=== PATIENT | female | born 1990 | race Caucasian/White ===

== ENCOUNTER 2024-02-13 07:41 | Emergency (ER) | payer MEDICAID, SELFPAY ==
--- NOTE | 2024-02-13 08:16 | PC.NURSE ---
PT CAME TO TRIAGE DESK TO SAY SHE WAS LEAVING TO GO TO [facility] AND WALKED OUT.
--- NOTE | 2024-02-13 16:31 | PD.EDADDENDU ---
Emergency Room Addendum Addendum Narrative: PT LWBS pt was not seen by me
== END 2024-02-13 08:16 | disposition left against medical advice (07) ==
LOC: SERX 09:34
PROVIDERS: Emergency Provider Internal Medicine Critical Care Medicine
DX: Z53.21 Procedure and treatment not carried out due to patient leaving prior to being seen by health care provider (principal)

== ENCOUNTER 2024-05-06 13:58 | Observation (INO) | payer MEDICAID, SELFPAY ==
[2024-05-06] VITALS (14 sets, daily range): BP systolic 136; BP diastolic 81; PULSE 89–101; RESP 16–97; TEMP 36.4; O2SAT 95–99; BMI 41.6
--- NOTE | 2024-05-06 14:50 | XR_ITS ---
Examination: Biophysical profile, ultrasound Date and time of exam: May 06, 2024 1552 hours INDICATIONS: Decreased movement today Technique: Multiple transabdominal sonographic images of the pelvis abdomen obtained. Attention is directed to the breathing movement, gross body movement, amniotic fluid volume and tone. Findings: Amniotic fluid index 9.5 cm Total biophysical profile is 8 of 8. breathing movement is 2. Gross body movement is 2. tone is 2. Qualitative amniotic fluid volume is 2 Impression: Biophysical profile is 8 of 8.
== END 2024-05-06 16:25 | disposition home or self-care (01) ==
PROVIDERS: Admitting Provider Obstetrics & Gynecology; PCP Nurse Practitioner Family; Visit Provider Obstetrics & Gynecology
DX: O36.8130 Decreased fetal movements, third trimester, not applicable or unspecified (principal); Z3A.28 28 weeks gestation of pregnancy
CPT/HCPCS: 59025; 59899; 76819

== ENCOUNTER 2024-06-18 20:24 | Observation (INO) | payer MEDICAID, SELFPAY ==
[2024-06-18 20:35] VITALS: BP 137/78; PULSE 107
[2024-06-18 20:54] VITALS: BP 118/69; PULSE 104
== END 2024-06-18 23:15 | disposition home or self-care (01) ==
PROVIDERS: Admitting Provider Student in an Organized Health Care Education/Training Program; Visit Provider Student in an Organized Health Care Education/Training Program
DX: Z34.83 Encounter for supervision of other normal pregnancy, third trimester (principal); Z3A.34 34 weeks gestation of pregnancy
CPT/HCPCS: 59899; J7120

== ENCOUNTER 2024-07-18 23:53 | Emergency (ER) | payer MEDICAID, SELFPAY ==
[2024-07-19 00:11] VITALS: BP 176/100; PULSE 70; RESP 17; TEMP 36.7; O2SAT 97
--- NOTE | 2024-07-19 00:17 | PD.EDRME ---
Rapid Medical Screening Exam RME Arrival date/time: 07/18/24 23:53 34 year old female present to ED for c/o of lower leg edema, and abd pain I have greeted and performed a focused initial assessment of this patient. A comprehensive ED assessment and evaluation of the patient, analysis of all test results, and completion of the medical decision making process will be conducted by additional ED providers. Chief Complaint: General Adult/Misc Complain Time Seen by Provider: 07/19/24 00:07 Vital signs: Vital Signs Temperature 98.0 F 07/19/24 00:11 Pulse Rate 70 07/19/24 00:11 Respiratory Rate 17 07/19/24 00:11 Blood Pressure 176/100 H 07/19/24 00:11 Pulse Oximetry (%) 97 07/19/24 00:11 Oxygen Delivery Method Room Air 07/19/24 00:11
--- NOTE | 2024-07-19 00:18 | XR_ITS ---
Examination: Venous duplex lower extremity sonogram, bilateral. Date and time of exam: July 19, 2024 0222 hrs. Indications: Status post July 11, 2024, bilateral leg pain and swelling Technique: Multiple sonographic images of the deep venous system have been obtained. B-mode/2-D grayscale imaging of vascular structures and Doppler spectral analysis (waveforms) and color performed Both legs are examined. Findings: Deep venous systems do not demonstrate abnormal echogenicity. All visualized deep veins exhibit compressibility. All visualized deep veins exhibit augmentation. Impression: Negative for deep vein thrombosis
[2024-07-19 00:51] LABS: Basophils # (Auto) 0.1 Thou/mm3 (0.0-0.2); Basophils % (Auto) 1 % (0-2.5); Eosinophils # (Auto) 0.4 Thou/mm3 (0.0-0.5); Eosinophils % (Auto) 4 % (0-10); Hematocrit 33.4 % (36.0-46.0); Hemoglobin 10.6 g/dL (12.0-16.0); Immature Granulocytes % (Auto) 1 % (0-0); Immature Granulocytes Auto 0.13 Thou/mm3 (0.00-0.00); Lymphocytes # (Auto) 1.7 Thou/mm3 (1.0-4.8); Lymphocytes % (Auto) 18 % (10-50); Mean Corpuscular HGB Conc 31.7 g/dl (31.0-37.0); Mean Corpuscular Hemoglobin 27.7 pg (25.0-35.0); Mean Corpuscular Volume 87 fL (80-100); Monocytes # (Auto) 0.6 Thou/mm3 (0.0-0.8); Monocytes % (Auto) 6 % (0-12); Neutrophils # (Auto) 6.7 Thou/mm3 (1.8-7.7); Neutrophils % (Auto) 70 % (37-80); Nucleated Red Blood Cell % 0 /100 WBC (0); Platelet Count 364 Thou/mm3 (140-440); RDW Standard Deviation 44.8 fL (36.4-46.3); Red Blood Count 3.83 Miln/mm3 (4.00-5.20); White Blood Count 9.5 Thou/mm3 (3.6-11.0)
[2024-07-19 01:04] LABS: INR 0.9 (0.9-1.3); Prothrombin Time 10.4 Seconds (9.0-12.2)
[2024-07-19 01:14] LABS: Alanine Aminotransferase 24 U/L (10-49); Albumin, Serum 3.8 gm/dL (3.5-5.0); Albumin/Globulin Ratio 1.6 (1.2-2.2); Alkaline Phosphatase 137 U/L (46-116); Anion Gap 9 (7-16); Aspartate Amino Transferase 13 U/L (0-34); BUN/Creatinine Ratio 22 Ratio (12-20); Bilirubin,Total 0.3 mg/dL (0.3-1.2); Blood Urea Nitrogen 13 mg/dL (9-23); Calcium 9.2 mg/dL (8.3-10.6); Calcium (Corrected) 9.4 mg/dL (8.5-10.1); Carbon Dioxide 24.1 mMol/L (20.0-31.0); Chloride 112 mMol/L (98-107); Creatinine (Component) 0.6 mg/dL (0.6-1.3); Globulin 2.4 gm/dL (2.3-3.5); Glucose 107 mg/dL (74-106); Lipase 29 U/L (12-53); Osmolality,Calculated 288 (275-295); Potassium 4.2 mMol/L (3.4-5.1); Sodium 145 mMol/L (136-145); Total Protein 6.2 gm/dL (5.7-8.2); eGFR > 60 See Note
[2024-07-19 01:31] LABS: B-Type Natriuretic Peptide 177 pg/mL (0-100)
--- NOTE | 2024-07-19 03:39 | PRELIM_ITS ---
Bilateral lower extremity venous Doppler ultrasound with wave Doppler spectral analysis. July 19, 2024 at 0222 hours Clinical history: Lower leg swelling recent, c/s rule out deep vein thrombosis. Technique: Duplex scan of the bilateral lower extremity deep venous systems was performed utilizing 2D grayscale imaging, Doppler spectral analysis and color flow Doppler and with compression. Comparison: None. Findings: The public relations counselor worksheet is not available at the time of this report. Archibald scale, color flow and spectral Doppler evaluation of the lower extremity deep veins was performed. Right: The common femoral, superficial femoral and popliteal veins are patent and compressible. Normal respiratory variation and augmentation are noted. The great saphenous vein is patent at the level of the saphenofemoral junction. The posterior tibial and peroneal veins are patent and compressible. There is no evidence of occlusive or nonocclusive thrombus. Left: The common femoral, superficial femoral and popliteal veins are patent and compressible. Normal respiratory variation and augmentation are noted. The great saphenous vein is patent at the level of the saphenofemoral junction. The posterior tibial and peroneal veins are patent and compressible. There is no evidence of occlusive or nonocclusive thrombus. Impression: No sonographic evidence of deep venous thrombosis in both lower extremities. Report Electronically Signed By: Vargas Lai 07/19/2024 3:39:13 AM [EST]
[2024-07-19 04:32] VITALS: BP 169/103; PULSE 64; RESP 18; TEMP 36.6; O2SAT 98
--- NOTE | 2024-07-19 06:22 | PD.EDADULT ---
ED General RME/HPI General Chief complaint: General Adult/Misc Complain Stated complaint: S/P CSECTION 07/11, BP HIGH, FEET SWELLING Time Seen by Provider: 07/19/24 00:07 Source: patient Arrival date/time: 07/18/24 23:53 34-year-old female with a history of hypertension, type 2 diabetes presents to the emergency room with a chief complaint of bilateral lower leg edema x 2 weeks. Patient states she had a done on 07/11/2024. Mode of arrival: ambulatory Limitations: no limitations RME / HPI RME / HPI narrative: 07/18/24 23:53 34 year old female present to ED for c/o of lower leg edema, and abd pain I have greeted and performed a focused initial assessment of this patient. A comprehensive ED assessment and evaluation of the patient, analysis of all test results, and completion of the medical decision making process will be conducted by additional ED providers. Related Data Home Medications ?Medication ?Instructions ?Recorded ?Confirmed aspirin 81 mg tablet,delayed 81 mg PO QDAY 05/06/24 06/18/24 release labetalol 100 mg tablet 100 mg PO QDAY 05/06/24 06/18/24 vitamin-ferrous sulfate 1 tab PO QDAY 05/06/24 06/18/24 27 mg iron-folic acid 0.8 mg tablet metformin 1,000 mg tablet,extended mg PO 06/18/24 release 24hr (osmotic) Allergies Allergy/AdvReac Type Severity Reaction Status Date / Time amoxicillin Allergy Severe Rash Verified 06/18/24 23:29 Penicillins Allergy Severe Rash Verified 06/18/24 23:29 Review of Systems Review of Systems Systems Reviewed: All systems reviewed, normal except as documented Constitutional Constitutional: Reports system reviewed and no additional complaints, except as documented, Denies fatigue, Denies fever(s), Denies headache(s) and Denies weakness Eyes Eyes: Reports system reviewed and no additional complaints, except as documented, Denies blurry vision and Denies change in vision ENT Ears, Nose, Mouth, and Throat: Reports system reviewed and no additional complaints, except as documented, Denies otalgia, Denies headache(s), Denies nasal congestion, Denies throat swelling and Denies vertigo Cardiovascular Cardiovascular: Reports system reviewed and no additional complaints, except as documented, Denies chest pain, Denies dyspnea and Denies dyspnea on exertion Respiratory Respiratory: Reports system reviewed and no additional complaints, except as documented, Denies chest congestion, Denies cough, Denies dyspnea, Denies dyspnea on exertion and Denies wheezing Gastrointestinal Gastrointestinal: Reports system reviewed and no additional complaints, except as documented, Denies abdominal pain, Denies cramping, Denies nausea and Denies vomiting Genitourinary Genitourinary: Reports system reviewed and no additional complaints, except as documented Musculoskeletal Musculoskeletal: Reports system reviewed and no additional complaints, except as documented, Denies back pain and Reports joint swelling Integumentary/Breasts Skin/Breast: Reports system reviewed and no additional complaints, except as documented and Denies wounds Neurologic Neurologic: Reports system reviewed and no additional complaints, except as documented, Denies confusion, Denies headache(s), Denies lack of coordination, Denies vertigo and Denies weakness Psychiatric Psychiatric: Reports system reviewed and no additional complaints, except as documented, Denies anxiety, Denies confusion, Denies depression, Denies paranoia, Denies suicidal ideation and Denies tactile hallucinations Endocrine Endocrine: Reports system reviewed and no additional complaints, except as documented and Denies fatigue Hematologic/Lymphatic Hematologic/Lymphatic: Reports system reviewed and no additional complaints, except as documented and Denies lymphadenopathy Allergic/Immunologic Allergic/Immunologic: Reports system reviewed and no additional complaints, except as documented, Denies throat swelling, Denies urticaria and Denies wheezing Past Medical History Past Medical History NEUROLOGIC: Negative Neurological Disorders CARDIAC: Positive Hypertension; Negative Congestive Heart Failure RESPIRATORY: Negative Chronic Obstructive Pulmonary Disease (COPD) GASTROINTESTINAL: Positive Ulcer; Negative Gastrointestinal Disorders GENITOURINARY: Negative Genitourinary Disorders or Renal Disease REPRODUCTIVE: Negative Pelvic Inflammatory Disease MUSCULOSKELETAL: Negative Musculoskeletal Disorders ENDOCRINE: Negative Endocrine Disorders, Diabetes Mellitus Type 1 or Diabetes Mellitus Type 2 HEMATOLOGIC: Negative Blood Disorders Social History SMOKING STATUS: Never smoker SUBSTANCE USE: marijuana ED Exam General Limitations: Present no limitations General appearance: Present alert and in no apparent distress Head Head exam: Present atraumatic Eye Eye exam: Present normal appearance, PERRL and EOMI ENT ENT exam: Present normal exam, normal oropharynx and mucous membranes moist Neck Neck exam: Present normal inspection, full ROM and trachea midline Chest Chest inspection: Present normal inspection and symmetric chest wall rise Respiratory Respiratory exam: Present normal lung sounds bilaterally Cardiovascular Cardiovascular exam: Present regular rate, normal rhythm and normal heart sounds Abdominal Exam Abdominal exam: Present soft and normal bowel sounds Extremities Exam Extremities exam: Present normal inspection and full ROM Expanded Lower Extremity Exam Lower leg exam: Present full ROM and swelling; Absent tenderness or Homans' sign Ankle exam: Present full ROM and swelling; Absent tenderness Foot/toe exam: Present full ROM and swelling Gait: observed and normal Back Exam Back exam: Present normal inspection and full ROM Neurological Exam Neurological exam: Present alert, oriented X3 and CN II-XII intact Psychiatric Psychiatric exam: Present normal affect and normal mood Skin Skin exam: Present warm, dry, intact and normal color Course Quality Measures none Orders Category Date Time Status US venous doppler LE BI Stat Exams 07/19/24 00:18 Taken BNP [B-Type Natriuretic Peptide] Stat Lab 07/19/24 00:39 Completed CBC Stat Lab 07/19/24 00:39 Completed CMP [Comprehensive Metabolic Panel] Stat Lab 07/19/24 00:39 Completed INR [Prothrombin Time with INR] Stat Lab 07/19/24 00:39 Completed Lipase Stat Lab 07/19/24 00:39 Completed Vital Signs Vital signs: Vital Signs Temperature 98.0 F 07/19/24 00:11 Pulse Rate 70 07/19/24 00:11 Respiratory Rate 17 07/19/24 00:11 Blood Pressure 176/100 H 07/19/24 00:11 Pulse Oximetry (%) 97 07/19/24 00:11 Oxygen Delivery Method Room Air 07/19/24 00:11 O2 saturation 97% within normal limits MDM Patient data External records reviewed:: [facility] previous records Clinical information provided by:: patient Social determinants that could affect healthcare access:: none Patient has the following chronic illnesses:: Hypertension, type 2 diabetes How is presenting disease/condition affected by chronic disease/condition?: uneffected by Evaluation data The following diagnostics were reviewed and interpreted by me:: lab results and radiology exam(s) Lab and/or radiology exams considered but not ordered:: Labs and radiology exams considered and ordered Interpretation Summary: Ultrasound Doppler lower extremities-Findings: The floral artist worksheet is not available at the time of this report. Archibald scale, color flow and spectral Doppler evaluation of the lower extremity deep veins was performed. Right: The common femoral, superficial femoral and popliteal veins are patent and compressible. Normal respiratory variation and augmentation are noted. The great saphenous vein is patent at the level of the saphenofemoral junction. The posterior tibial and peroneal veins are patent and compressible. There is no evidence of occlusive or nonocclusive thrombus. Left: The common femoral, superficial femoral and popliteal veins are patent and compressible. Normal respiratory variation and augmentation are noted. The great saphenous vein is patent at the level of the saphenofemoral junction. The posterior tibial and peroneal veins are patent and compressible. There is no evidence of occlusive or nonocclusive thrombus. Impression: No sonographic evidence of deep venous thrombosis in both lower extremities. Medications Medications considered but not ordered:: Medication not given Medication administrations:: Medication not given Consultations Consultation(s) initiated? (list below): No Diagnosis Differential Diagnosis ED Complaint MDM: Lower extremity edema/DVT/electrolyte imbalance/chronic venous insufficienc Most likely diagnosis given after review of the tests above:: Lower extremity edema Admission Indicated Admission indicated?: not indicated Explain why admission is indicated or not indicated:: N/A Admission Request Was there a request for admission?: No Disposition Plan Disposition Plan: Discharge Discharge Attestation Discharge Attestation: The patient and all family members were given an opportunity to ask questions and understood the discharge instructions. Discharge instructions specifically effects, indications for sooner follow up or return to the emergency department, and the expected course of current diagnosis. Patient condition: Stable Medical Decision Making MDM Narrative MDM Narrative: 34-year-old female with a history of hypertension, type 2 diabetes presents to the emergency room with a chief complaint of bilateral lower leg edema x 2 weeks. Patient states she had a done on 07/11/2024. Patient is hemodynamically stable and in no apparent distress Physical examination shows clear bilateral lung sounds. Physical examination shows +2 edema to the bilateral lower extremities. Patient states edema has been on during her last 2 weeks of but states she is 1 week and the swelling has not gone away. Ultrasound of the lower extremities was completed and was negative for any DVT. CBC CMP urinalysis were all negative for any acute findings. Patient was discharged and educated to follow-up with primary care provider in the next 24 to 48 hours and return to the emergency room for any evidence of worsening signs or symptoms Differential Diagnosis Differential Diagnosis: Lower extremity edema/DVT/electrolyte imbalance/chronic venous insufficienc Lab Data 07/19/24 00:39 07/19/24 00:39 Labs: Lab Results 07/19/24 Range/Units 00:39 WBC 9.5 (3.6-11.0) Thou/mm3 RBC 3.83 L (4.00-5.20) Miln/mm3 Hgb 10.6 L (12.0-16.0) g/dL Hct 33.4 L (36.0-46.0) % MCV 87 (80-100) fL MCH 27.7 (25.0-35.0) pg MCHC 31.7 (31.0-37.0) g/dl RDW Std Deviation 44.8 (36.4-46.3) fL Plt Count 364 (140-440) Thou/mm3 Neut % (Auto) 70 (37-80) % Lymph % (Auto) 18 (10-50) % Cataño % (Auto) 6 (0-12) % Eos % (Auto) 4 (0-10) % Baso % (Auto) 1 (0-2.5) % Neut # (Auto) 6.7 (1.8-7.7) Thou/mm3 Lymph # (Auto) 1.7 (1.0-4.8) Thou/mm3 Cataño # (Auto) 0.6 (0.0-0.8) Thou/mm3 Eos # (Auto) 0.4 (0.0-0.5) Thou/mm3 Baso # (Auto) 0.1 (0.0-0.2) Thou/mm3 Immature Gran # (Auto) 0.13 H (0.00-0.00) Thou/mm3 Absolute Nucleated RBC 0.00 (0.00-0.00) Thou/mm3 Immature Gran % 1 H (0-0) % Nucleated RBC % 0 (0) /100 WBC PT 10.4 (9.0-12.2) Seconds INR 0.9 (0.9-1.3) Sodium 145 (136-145) mMol/L Potassium 4.2 (3.4-5.1) mMol/L Chloride 112 H (98-107) mMol/L Carbon Dioxide 24.1 (20.0-31.0) mMol/L Anion Gap 9 (7-16) BUN 13 (9-23) mg/dL Creatinine 0.6 (0.6-1.3) mg/dL Estim Creat Clear Calc Not Performed. eGFR > 60 (60 - ) See Note BUN/Creatinine Ratio 22 H (12-20) Ratio Glucose 107 H (74-106) mg/dL Calculated Osmolality 288 (275-295) Calcium 9.2 (8.3-10.6) mg/dL Corrected Calcium 9.4 (8.5-10.1) mg/dL Total Bilirubin 0.3 (0.3-1.2) mg/dL AST 13 (0-34) U/L ALT 24 (10-49) U/L Alkaline Phosphatase 137 H (46-116) U/L B-Natriuretic Peptide 177 H (0-100) pg/mL Total Protein 6.2 (5.7-8.2) gm/dL Albumin 3.8 (3.5-5.0) gm/dL Globulin 2.4 (2.3-3.5) gm/dL Albumin/Globulin Ratio 1.6 (1.2-2.2) Lipase 29 (12-53) U/L Discharge Plan Plan Patient Disposition: HOME (Self Care) Disposition Comment: Stable Prescriptions/Referrals Prescriptions/Med Rec: No Action 27 mg iron- 0.8 mg Tablet 1 tab PO QDAY aspirin 81 mg tablet,delayed release (DR/EC) 81 mg PO QDAY Patient Comments: take 2 tablets by mouth once daily labetalol 100 mg tablet 100 mg PO QDAY Patient Comments: take 1 tablet by mouth twice a day metformin 1,000 mg tablet extended release 24hr PO Patient Comments: take 1 tablet by mouth once daily WITH EVENING MEAL for diabetes Referrals: Nadege Rodriguez PIGMENT GRINDER [Primary Care Provider] - In 1 week Problem List Clinical Impression: Edema in preg-delivered Patient/Caregiver Discharge Instructions Education Materials: ED Leg Swelling in Both Legs Additional Instructions: Please follow-up with your PRODUCTION WOOD CRAFTSMAN in the next 24 to 48 hours. Your ultrasound of your lower extremities was negative for any blood clot. Your blood work and urinalysis was negative for any acute findings For any evidence of worsening signs or symptoms return to the emergency room immediately Print Language: [place] Verde[place] Stand Alone Forms: Colleen Award Info., Work/School Release, Patient Portal Info Letter PA/RYAN Supervising Physician AMISH/RYAN Supervising Physician: Dr. Clifton
== END 2024-07-19 06:27 | disposition home or self-care (01) ==
PROVIDERS: Physician Assistant; Emergency Provider Emergency Medicine; PCP Nurse Practitioner Family
DX: O90.89 Other complications of the puerperium, not elsewhere classified (principal); R60.0 Localized edema; O10.93 Unspecified pre-existing hypertension complicating the puerperium; O24.13 Pre-existing type 2 diabetes mellitus, in the puerperium
CPT/HCPCS: 36415; 80053; 83690; 83880; 85025; 85610; 93970; 99284

== ENCOUNTER 2024-11-29 12:10 | Emergency (ER) | payer MEDICAID, SELFPAY ==
[2024-11-29 12:22] VITALS: BP 147/79; PULSE 115; RESP 18; TEMP 37.3; O2SAT 97; BMI 42.5
--- NOTE | 2024-11-29 12:27 | XR_ITS ---
Examination: Pelvic ultrasound, transabdominal, complete Technique: Transabdominal ultrasound of the pelvis performed using grayscale imaging Date and time of exam: November 29, 2024 1249 hours INDICATIONS: Vaginal bleeding post July 11, 2024 FINDINGS: Uterus 10.8 cm endometrial stripe 0.7 cm No uterine mass or intrauterine gestation Right ovary 2.2 cm arterial flow Left ovary 3.0 cm arterial flow small follicles IMPRESSION: Negative study
--- NOTE | 2024-11-29 12:28 | PD.EDRME ---
Rapid Medical Screening Exam RME Arrival date/time: 11/29/24 12:10 34-year-old female presents to the Emergency Department today for complaint of vaginal bleeding Chief Complaint: Vaginal Bleeding Vital signs: Vital Signs Temperature 99.2 F 11/29/24 12:22 Pulse Rate 115 H 11/29/24 12:22 Respiratory Rate 18 11/29/24 12:22 Blood Pressure 147/79 H 11/29/24 12:22 Pulse Oximetry (%) 97 11/29/24 12:22 Oxygen Delivery Method Room Air 11/29/24 12:22
[2024-11-29 12:51] LABS: Basophils # (Auto) 0.0 Thou/mm3 (0.0-0.2); Basophils % (Auto) 0 % (0-2.5); Eosinophils # (Auto) 0.5 Thou/mm3 (0.0-0.5); Eosinophils % (Auto) 5 % (0-10); Hematocrit 34.1 % (36.0-46.0); Hemoglobin 11.7 g/dL (12.0-16.0); Immature Granulocytes Auto 0.07 Thou/mm3 (0.00-0.00); Lymphocytes # (Auto) 2.8 Thou/mm3 (1.0-4.8); Lymphocytes % (Auto) 30 % (10-50); Mean Corpuscular HGB Conc 34.3 g/dl (31.0-37.0); Mean Corpuscular Hemoglobin 30.6 pg (25.0-35.0); Mean Corpuscular Volume 89 fL (80-100); Monocytes # (Auto) 0.6 Thou/mm3 (0.0-0.8); Monocytes % (Auto) 7 % (0-12); Neutrophils # (Auto) 5.3 Thou/mm3 (1.8-7.7); Neutrophils % (Auto) 57 % (37-80); Nucleated Red Blood Cell # 0.02 Thou/mm3 (0.00-0.00); Nucleated Red Blood Cell % 0 /100 WBC (0); Platelet Count 324 Thou/mm3 (140-440); RDW Standard Deviation 42.7 fL (36.4-46.3); Red Blood Count 3.82 Miln/mm3 (4.00-5.20); White Blood Count 9.4 Thou/mm3 (3.6-11.0)
[2024-11-29 13:03] LABS: HCG,Qualitative Serum Negative
[2024-11-29 13:07] LABS: Alanine Aminotransferase 34 U/L (10-49); Albumin, Serum 4.2 gm/dL (3.5-5.0); Albumin/Globulin Ratio 1.8 (1.2-2.2); Alkaline Phosphatase 100 U/L (46-116); Anion Gap 8 (7-16); Aspartate Amino Transferase 26 U/L (0-34); BUN/Creatinine Ratio 6 Ratio (12-20); Bilirubin,Total 0.3 mg/dL (0.3-1.2); Blood Urea Nitrogen < 5 mg/dL (9-23); Calcium 9.0 mg/dL (8.3-10.6); Calcium (Corrected) 9.0 mg/dL (8.5-10.1); Carbon Dioxide 21.6 mMol/L (20.0-31.0); Chloride 110 mMol/L (98-107); Creatinine (Component) 0.8 mg/dL (0.6-1.3); Estimated Creatinine Clearance 116.2 mL/min (>60); Globulin 2.4 gm/dL (2.3-3.5); Glucose 149 mg/dL (74-106); Osmolality,Calculated 279 (275-295); Potassium 3.8 mMol/L (3.4-5.1); Sodium 140 mMol/L (136-145); Total Protein 6.6 gm/dL (5.7-8.2); eGFR > 60 See Note
[2024-11-29 14:49] LABS: INR 1.0 (0.9-1.3); Partial Thromboplastin Time 25.8 Seconds (22.0-36.0); Prothrombin Time 10.6 Seconds (9.0-12.2)
[2024-11-29 17:08] VITALS: BP 162/98; PULSE 102; RESP 18; TEMP 37; O2SAT 99
--- NOTE | 2024-11-29 17:24 | EDNOTE_ITS ---
ED OB Contraction Preg RMI/HPI General Chief complaint: Vaginal Bleeding Stated complaint: Vaginal bleeding since July Time Seen by Provider: 11/29/24 15:20 Arrival date/time: 11/29/24 12:10 Patient is a 34-year-old female is here today with continuous vaginal bleeding. She states this has been occurring near constantly since July,. She states that started after she had a . She saw her invertebrate paleontologist for this did receive a Depo-Provera injection and another medication that she does not recall. She states the bleeding is continued?got worse the last 2 weeks. She denies any falls or injuries. She has no fevers or chills. No near syncopal episodes. She has no worsening abdominal pain or pelvic pain. She has no dysuria. She has no other acute complaints. Limitations: no limitations RME / HPI RME / HPI Narrative: 11/29/24 12:10 34-year-old female presents to the Emergency Department today for complaint of vaginal bleeding Related Data Home Medications ?Medication ?Instructions ?Recorded ?Confirmed aspirin 81 mg tablet,delayed 81 mg PO QDAY 05/06/24 release labetalol 100 mg tablet 100 mg PO QDAY 05/06/2401/02 vitamin-ferrous sulfate 1 tab PO QDAY 4 06/18/24 27 mg iron-folic acid 0.8 mg tablet metformin 1,000 mg tablet,extended mg PO 06/18/24 release 24hr (osmotic) Allergies Allergy/AdvReac Type Severity Reaction Status Date / Time amoxicillin Allergy Severe Rash Verified 11/29/24 12:16 Penicillins Allergy Severe Rash Verified 11/29/24 12:16 Review of Systems Review of Systems Systems Reviewed: All systems reviewed, normal except as documented ED Exam General Limitations: Present no limitations General appearance: Present alert and in no apparent distress Head Head exam: Present atraumatic Eye Eye exam: Present normal appearance, PERRL and EOMI ENT ENT exam: Present normal exam, normal oropharynx and mucous membranes moist Neck Neck exam: Present normal inspection, full ROM and trachea midline Chest Chest inspection: Present normal inspection and symmetric chest wall rise Respiratory Respiratory exam: Present normal lung sounds bilaterally Cardiovascular Cardiovascular exam: Present regular rate, normal rhythm and normal heart sounds Abdominal Exam Abdominal exam: Present soft; Absent distention or tenderness Extremities Exam Extremities exam: Present normal inspection and full ROM Back Exam Back exam: Present normal inspection and full ROM Neurological Exam Neurological exam: Present alert and oriented X3 Psychiatric Psychiatric exam: Present normal affect and normal mood Skin Skin exam: Present warm, dry, intact and normal color Course Quality Measures none Orders Category Date Time Status US pelvic complete Stat Exams 11/29/24 12:27 Completed CBC Stat Lab 11/29/24 12:34 Completed Comprehensive Metabolic Panel Stat Lab 11/29/24 12:34 Completed HCG,Qualitative Serum Stat Lab 11/29/24 12:34 Completed Partial Thromboplastin Time Stat Lab 11/29/24 12:34 Completed Prothrombin Time with INR Stat Lab 11/29/24 12:34 Completed Type and Screen Stat Lab 11/29/24 12:34 Completed Vital Signs Vital signs: Vital Signs Temperature 99.2 F 11/29/24 12:22 Pulse Rate 115 H 11/29/24 12:22 Respiratory Rate 18 11/29/24 12:22 Blood Pressure 147/79 H 11/29/24 12:22 Pulse Oximetry (%) 97 11/29/24 12:22 Oxygen Delivery Method Room Air 11/29/24 12:22 Vaginal Bleeding MDM Narrative MDM Narrative: 11/29/24 12:10 Patient is a 34-year-old female is here today with continuous vaginal bleeding. She states this has been occurring near constantly since July,. She states that started after she had a . She saw her invertebrate paleontologist for this did receive a Depo-Provera injection and another medication that she does n ot recall. She states the bleeding is continued?got worse the last 2 weeks. She denies any falls or injuries. She has no fevers or chills. No near syncopal episodes. She has no worsening abdominal pain or pelvic pain. She has no dysuria. She has no other acute complaints. On exam patient is nontoxic-appearing and in no visible signs stress. Vital signs are stable. Her CBC is stable. We also obtained an ultrasound which was unremarkable. There is no intrauterine mass. I do believe the patient is stable for discharge. She will follow-up with her invertebrate paleontologist to discuss her ongoing vaginal bleeding. We discussed return precautions. She is return as needed for any worsening or emergent changes. Patient data External records reviewed:: None Clinical information provided by:: patient Social determinants that could affect healthcare access:: none Patient has the following chronic illnesses:: Vaginal bleeding How is presenting disease/condition affected by chronic disease/condition?: exacerbated by Evaluation data The following diagnostics were reviewed and interpreted by me:: lab results (CBC reveals no leukocytosis or anemia. She has mild hyperglycemia at 149, metabolic panel is otherwise unremarkable.) and radiology exam(s) (Ultrasound of the pelvis was obtained and is unremarkable.) Lab and/or radiology exams considered but not ordered:: n/a Interpretation Summary: No anemia or pelvic abnormalities on ultrasound Medications / Prescriptions Medications or Prescriptions considered but not ordered:: n/a Medication administrations:: n/a Consultations Consultation(s) initiated? (list below): No Diagnosis Vaginal Bleeding Differential Diagnosis: dysfunctional uterine bleeding, menometrorrhagia and vaginal bleeding Most likely diagnosis given after review of the tests above:: Vaginal bleeding Admission Indicated Admission indicated?: not indicated Admission Request Was there a request for admission?: No Disposition Plan Disposition Plan: Discharge Discharge Attestation Discharge Attestation: The patient and all family members were given an opportunity to ask questions and understood the discharge instructions. Discharge instructions specifically effects, indications for sooner follow up or return to the emergency department, and the expected course of current diagnosis. Patient condition: Stable Discharge Plan Plan Patient Disposition: HOME (Self Care) Patient condition on transfer: Stable Prescriptions/Referrals Prescriptions/Med Rec: No Action 27 mg iron- 0.8 mg Tablet 1 tab PO QDAY aspirin 81 mg tablet,delayed release (DR/EC) 81 mg PO QDAY Patient Comments: take 2 tablets by mouth once daily labetalol 100 mg tablet 100 mg PO QDAY Patient Comments: take 1 tablet by mouth twice a day metformin 1,000 mg tablet extended release 24hr PO Patient Comments: take 1 tablet by mouth once daily WITH EVENING MEAL for diabetes Referrals: Nadege Rodriguez NP [Primary Care Provider] - In 1 week Problem List Clinical Impression: Vaginal bleeding Patient/Caregiver Discharge Instructions Education Materials: ED Dysfunctional Uterine Bleeding Additional Instructions: -Follow up with your OBGYN this week. -Return here at any time for any worsening changes. Print Language: Swazi Stand Alone Forms: Colleen Award Info., Patient Portal Info Letter
== END 2024-11-29 17:42 | disposition home or self-care (01) ==
PROVIDERS: Nurse Practitioner Primary Care; Emergency Provider Emergency Medicine; PCP Nurse Practitioner Family
DX: N93.9 Abnormal uterine and vaginal bleeding, unspecified (principal)
CPT/HCPCS: 36415; 76856; 80053; 84703; 85025; 85610; 85730; 86850; 86900; 86901; 99283